=== PATIENT | female | born 1990 | race Caucasian/White ===

== ENCOUNTER 2024-06-18 07:59 | Emergency (ER) | payer MEDICAID, OTHER ==
[~2024-06-18] VITALS: Ht 154.9 cm; Wt 56.7 kg
--- NOTE | 2024-06-18 09:01 | ED.PDOC ---
BUSINESS CONTINUITY MANAGER HPI Comments 34Y F with PMHx x3 presents to ED for chief complaint vaginal bleeding x2days. Pt describes blood as red/brown and only appears when wiping. Additional symptom includes lower abd cramping with pain level 7/10. Pt is 3 months with LMP between March 2024. 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 Pt also had bleeding when 6wks . No known allergies. Chief Complaint: Vaginal Bleed Time Seen by MD: 08:43 Reviewed Notes: Medications, Allergies Allergies: Coded Allergies: NO KNOWN ALLERGIES (Unverified , 06/18/24) Information Source: Patient Mode of Arrival: Ambulatory Timing: Days Severity: Moderate Vaginal Discharge: None Vaginal Lesions: None Bleeding Quality: Dark Vaginal Mass: None Onset Of Mass/Bleeding: Spontaneous Sexual Activity: Last Consensual [place]: Unknown Control: None History of: Current Blood Type: Unknown Symptoms of Possible : Other Associated Signs and Symptoms: Vaginal Bleeding, Abdominal Pain, Cramping Past Medical History PAST MEDICAL HISTORY: Denies Surgical History: FRONT DESK MANAGER History: Denies all FRONT DESK MANAGER Hx Family History Family History: Unknown Social History Smoker: Non-Smoker Alcohol: Denies ETOH Use Drugs: Denies Drug Use Lives In: Home Constitutional: denies: chills, diaphoresis, fatigue, fever, malaise, sweats, weakness, others EENTM: denies: blurred vision, double vision, ear bleeding, ear discharge, ear drainage, ear pain, ear ringing, eye pain, eye redness, hearing loss, mouth pain, mouth swelling, nasal discharge, nose bleeding, nose congestion, nose pain, photophobia, tearing, throat pain, throat swelling, voice changes, others Respiratory: denies: cough, hemoptysis, orthopnea, SOB at rest, shortness of breath, SOB with excertion, stridor, wheezing, others Cardiovascular: denies: chest pain, dizzy spells, diaphoresis, Dyspnea on exertion, edema, irregular heart beat, left arm pain, lightheadedness, palp itations, PND, syncope, others Gastrointestinal: reports: abdominal pain (cramping); denies: abdomen distended, blood streaked bowels, constipated, diarrhea, dysphagia, difficulty swallowing, hematemesis, melena, nausea, poor appetite, poor fluid intake, rectal bleeding, rectal pain, vomiting, others Genitourinary: reports: abnormal vagina bleeding, ; denies: burning, dyspareunia, dysuria, flank pain, frequency, hematuria, incontinence, pain, vagina discharge, urgency, others Neurological: denies: dizziness, fainting, headache, left sided numbness, left sided weakness, numbness, paresthesia, pre-existing deficit, right sided numbness, right sided weakness, seizure, speech problems, tingling, tremors, weakness, others Musculoskeletal: denies: back pain, gout, joint pain, joint swelling, muscle pain, muscle stiffness, neck pain, others Integumetry: denies: bruises, change in color, change in hair/nails, dryness, laceration, lesions, lumps, rash, wounds, others Allergic/Immunocompromised: denies: Difficulty Healing, Frequent Infections, Hives, Itching, others Hematologic/Lymphatic: denies: anemia, blood clots, easy bleeding, easy bruising, swollen glands, others Endocrine: denies: excessive hunger, excessive sweating, excessive thirst, excessive urination, flushing, intolerance to cold, intolerance to heat, unexplained weight gain, unexplained weight loss, others Psychiatric: denies: anxiety, bipolar disorder, depression, hopeless, panic disorder, schizophrenia, sleepless, suicidal, others All Other Systems: Reviewed and Negative Physical Exam General Appearance: Moderate Distress, Normal HEENT: Normal ENT Inspection, Pharynx Normal, TMs Normal Neck: Full Range of Motion, Non-Tender, Normal, Normal Inspection Respiratory: Chest Non-Tender, Lungs Clear, No Accessory Muscle Use, No Respiratory Distress, Normal Breath Sounds Cardiovascular: No Edema, No JVD, No Murmur, No Gallop, Normal Peripheral Pulses, Regular Rate/Rhythm Breast Exam: Deferred Gastrointestinal: No Organomegaly, Non Tender, No Pulsatile Mass, Normal Bowel Sounds, Soft Genitalia: Deferred Pelvic: Deferred Rectal: Deferred Extremities: No calf tenderness, Normal capillary refill, Normal inspection, Normal range of motion, Non-tender, No pedal edema Musculoskeletal : Apperance: Normal Neurologic: Alert, 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 Was a procedure done?: No Differential Diagnosis (FRONT DESK MANAGER) Vaginal Bleeding: - Complete, - Incomplete, - Inevitable, - Missed, - Threatened X-Ray, Labs, Meds, VS Vital Signs Date Time Temp Pulse Resp B/P (MAP) Pulse Ox O2 Delivery O2 Flow Rate FiO2 06/18/24 10:50 98.0 63 17 134/76 (95) 99 98.0 06/18/24 09:23 68 14 127/84 06/18/24 09:13 Room Air* 0 21 06/18/24 09:06 83 18 141/97 06/18/24 08:47 97.9 84 16 141/97 (112) 99 97.9 06/18/24 08:07 97.0 80 17 164/91 (115) 100 Lab Test 06/18/24 09:00 06/18/24 08:15 Range/Units Urine Color Light-yellow Yellow Urine Clarity Clear Clear Urine pH 5.5 5.0-9.0 Urine Specific [place] 1.019 1.001-1.035 Urine Protein Negative Negative Urine Ketones Negative Negative Urine Blood Trace H Negative /uL Urine Nitrite Negative Negative Urine Bilirubin Negative Negative Urine Urobilinogen Normal Negative mg/dL Urine Leukocyte Esterase Trace Negative /uL Urine RBC 1 0 - 4 /hpf Urine WBC 1 0 - 5 /hpf Urine Squamous Epithelial Cells Few <5 /hpf Urine Bacteria None seen None Seen /hpf Urine Glucose Normal Normal mg/dL Beta HCG, Quantitative 92503.6 H 1.5-4.2 mIU/mL Current Medications Medications (Trade) Dose Ordered Sig/Sky Route Start Time Stop Time Status Last Admin Morphine Sulfate 4 mg ONCE ONCE IV 06/18/24 09:00 06/18/24 09:01 DC 06/18/24 09:06 Ondansetron HCl (Zofran) 4 mg ONCE ONCE IV 06/18/24 09:00 06/18/24 09:01 DC 06/18/24 09:[address] [address] Ph: [phone] DIAGNOSTIC IMAGING Diagnostic Imaging Report : [id number] Signed PATIENT: LIGIA DILLARD ACCT: [id number] UNIT: [id number] : 1990 LOC: ER ROOM / BED: / AGE / SEX: 34 / F ADM STATUS: REG ER SERVICE ORDERING PHYSICIAN: MOR GANDHI MD PROCEDURE(s): OB4US - OB ULTRASOUND COMP LESS 14WKS REASON: Vaginal Bleeding ORDER NUMBER(s): [id number], ACCESSION NUMBER(s): [id number] Procedure: US OB ULTRASOUND COMP LESS 14WKS 06/18/2024 09:22 AM Indication: Vaginal Bleeding. Comparison: None Technique: Real-time grayscale and color images were obtained. FINDINGS: UTERUS: Anteverted, measuring 13 cm in length. Homogeneous myometrium without a discrete lesion. An intrauterine gestational sac is seen measuring 4.8 cm in mean sac diameter corresponding to 10 weeks and 3 days containing a pole measuring 1.7 cm in crown-rump length corresponding to 8 weeks and 1 day with no heart tone identified. OVARIES: Normal in size bilaterally with normal echotexture and preserved vascular flow. A 3 cm simple appearing cyst noted in the right ovary which is the corpus luteum of gestation. CUL-DE-SAC: No significant fluid noted. IMPRESSION: 1. Single intrauterine with estimated ultrasound age of 8 weeks and 1 day based on crown-rump length with no heart tone concerning for dem ise. Correlate clinically. ATED BY: NICOLE DIANE MD DICTATED DATE/TIME: 06/18/24 1030 SIGNED BY: NICOLE DIANE MD SIGNED DATE/TIME: 06/18/24 1030 CC: Patient alert. Complaining of vaginal bleeding. Suprapubic pain. Vitals stable. four. Establish intravenous access. Was given morphine. Was given Zofran. Reviewed her history. . Explained to the patient. Spoke with OBGYN. Recommended follow up. Made an appointment with their office. OBGYN did not have any recommendation of the than follow up. Was told to come back if there is any problem. Time of 1ST Reevaluation: 09:13 Reevaluation 1ST: Unchanged Time of 2ND Reevaluation: 11:09 Reevaluation 2ND: Improved Patient Education/Counseling: Diagnosis, Treatment Family Education/Counseling: Diagnosis, Treatment Departure 1 Departure Time of Disposition: 09:04 Impression: Primary Impression: Vaginal bleeding affecting early Disposition: 01 HOME / SELF CARE / HOMELESS Condition: Good Discharged With: Self Critical Care Note Critical Care Time?: No Stability Stability form required: No Heart Score Heart Score: Heart Score Response (Comments) Value History N/A 0 EKG N/A 0 Age N/A 0 Risk Factors N/A 0 Troponin N/A 0 Total 0 I personally scribed for MOR GANDHI MD ([email or web address]) on 06/18/24 at 09:01. Electronically submitted by Samantha Lui ([email or web address]). I personally scribed for MOR GANDHI MD ([email or web address]) on 06/18/24 at 10:39. Electronically submitted by Samantha Lui ([employer]). MOR GANDHI MD Jun 18, 2024 09:01
[2024-06-18] MEDS: ONDANSETRON HCL 4 MG/2 ML VIAL IV ONE (09:05)
[2024-06-18] MEDS: MORPHINE SULFATE 4 MG/ML SYR/VIAL IV ONE (09:06)
[2024-06-18 09:28] LABS: Urine Bacteria None Seen /hpf (None Seen)
[2024-06-18 09:41] LABS: Urine Blood TRACE /uL (Negative); Urine Clarity Clear (Clear); Urine Color Light-Yellow (Yellow); Urine Protein, UAD Negative (Negative); Urine Specific Gravity 1.019 (1.001-1.035); Urine Urobilinogen Normal (Negative); Urine WBC 1 /hpf (0 - 5); Urine pH 5.5 (5.0-9.0)
--- NOTE | 2024-06-18 10:32 | DVH ---
Procedure: US OB ULTRASOUND COMP LESS 14WKS 06/18/2024 09:22 AM Indication: Vaginal Bleeding. Comparison: None Technique: Real-time grayscale and color images were obtained. FINDINGS: UTERUS: Anteverted, measuring 13 cm in length. Homogeneous myometrium without a discrete lesion. An i ntrauterine gestational sac is seen measuring 4.8 cm in mean sac diameter corresponding to 10 weeks a nd 3 days containing a pole measuring 1.7 cm in crown-rump length corresponding to 8 weeks and 1 day with no heart tone identified. OVARIES: Normal in size bilaterally with normal echotexture and preserved vascular flow. A 3 cm simpl e appearing cyst noted in the right ovary which is the corpus luteum of gestation. CUL-DE-SAC: No significant fluid noted. IMPRESSION: 1. Single intrauterine with estimated ultrasound age of 8 weeks and 1 day based on crown-ru mp length with no heart tone concerning for demise. Correlate clinically.
[2024-06-18 10:50] VITALS: BP 134/76; PULSE 63; RESP 17; TEMP 98; O2SAT 99
== END 2024-06-18 11:27 | disposition home or self-care (01) ==
LOC: ER 07:59
DX: O20.9 Hemorrhage in early pregnancy, unspecified (principal); R10.2 Pelvic and perineal pain; Z3A.08 8 weeks gestation of pregnancy; Z98.890 Other specified postprocedural states
CPT/HCPCS: 36415; 76801; 81001; 84702; 96374; 96375; 99285; J2270; J2405